=== PATIENT | male | born 1995 | race Two or more races ===

== ENCOUNTER 2019-06-05 09:06 | Emergency (ER) | payer SELFPAY ==
[2019-06-05] MEDS ORDERED: Ondansetron 4 MG/2 ML SDV IVPUSH ONE (09:47)
[2019-06-05] MEDS ORDERED: HYDROmorphone 0.5 MG/0.5 ML Syringe IVPUSH ONE ×2 (09:47→12:02)
--- NOTE | 2019-06-05 09:51 | EDM.PDOC ---
ED HPI GENERAL MEDICAL PROBLEM - General Chief Complaint: Abdominal Pain Stated Complaint: ABDOMINAL PAIN Time Seen by Provider: 06/05/19 09:43 Source of Information: Reports: Patient History Limitations: Reports: No Limitations - History of Present Illness INITIAL COMMENTS - FREE TEXT/NARRATIVE: Patient is a 23-year-old male who presents with complaints of upper abdominal pain, nausea, and vomiting that started this morning. Patient states when he went to bed last night he had no symptoms. He did eat tacos prior to going to bed last night. Patient denies any history of GERD. He has had an appendectomy , however he does still have his gallbladder. Patient states that the pain occurred first and then the nausea and vomiting. He states that he had a bowel movement yesterday. States it was a normal, formed BM. Abdominal Pain Score (Numeric/FACES): 8 - Related Data Allergies Allergy/AdvReac Type Severity Reaction Status Date / Time No Known Allergies Allergy Verified 06/05/19 09:26 Home Meds: Home Meds Dicyclomine [Bentyl] 20 mg PO Q6H PRN #10 tablet 06/05/19 [Rx] Ondansetron [Zofran ODT] 4 mg PO Q6H PRN #10 tab.dis 06/05/19 [Rx] ED ROS GENERAL - Review of Systems Review Of Systems: See Below Constitutional: Reports: No Symptoms. Denies: Fever, Chills HEENT: Reports: No Symptoms Respiratory: Reports: No Symptoms Cardiovascular: Reports: No Symptoms. Denies: Chest Pain, Palpitations Endocrine: Reports: No Symptoms GI/Abdominal: Reports: Abdominal Pain, Nausea, Vomiting. Denies: Diarrhea : Reports: No Symptoms Musculoskeletal: Reports: No Symptoms Skin: Reports: No Symptoms Neurological: Reports: No Symptoms. Denies: Dizziness, Headache Psychiatric: Reports: No Symptoms Hematologic/Lymphatic: Reports: No Symptoms Immunologic: Reports: No Symptoms ED EXAM, GI/ABD - Physical Exam Exam: See Below Exam Limited By: No Limitations General Appearance: Alert, WD/WN, Mild Distress Head: Atraumatic, Normocephalic Respiratory/Chest: No Respiratory Distress, Lungs Clear, Normal Breath Sounds, No Accessory Muscle Use, Chest Non-Tender Cardiovascular: Normal Peripheral Pulses, Regular Rate, Rhythm, No Edema, No Murmur GI/Abdominal Exam: Normal Bowel Sounds, Soft, No Distention, Tender ( generalized throughout. Worse in the epigastrum and bilateral upper quadrents.) Neurological: Alert, Oriented, Normal Cognition Psychiatric: Normal Affect, Normal Mood Skin Exam: Warm, Dry, Intact, Normal Color, No Rash Course - Vital Signs Last Recorded V/S: Last Vital Signs Temp 96.9 F 06/05/19 09:22 Pulse 100 06/05/19 09:22 Resp 18 06/05/19 09:22 BP 157/100 H 06/05/19 09:22 Pulse Ox 100 06/05/19 09:22 - Orders/Labs/Meds Orders: Active Orders 24 hr Category Date Time Status UA W/MICROSCOPIC [URIN] Stat Lab 06/05/19 09:47 Ordered Labs: Laboratory Tests 06/05/19 06/05/19 06/05/19 Range/Units 09:33 09:33 09:33 WBC 11.97 H (4.23-9.07) K/mm3 RBC 5.72 (4.63-6.08) M/mm3 Hgb 16.0 (13.7-17.5) gm/dl Hct 45.7 (40.1-51.0) % MCV 79.9 (79.0-92.2) fl MCH 28.0 (25.7-32.2) pg MCHC 35.0 (32.2-35.5) g/dl RDW Std Deviation 37.9 (35.1-43.9) fL Plt Count 280 (163-337) K/mm3 MPV 9.1 L (9.4-12.3) fl Neut % (Auto) 69.4 H (34.0-67.9) % Lymph % (Auto) 21.5 L (21.8-53.1) % White % (Auto) 6.8 (5.3-12.2) % Eos % (Auto) 1.7 (0.8-7.0) Baso % (Auto) 0.3 (0.1-1.2) % Neut # (Auto) 8.33 H (1.78-5.38) K/mm3 Lymph # (Auto) 2.57 (1.32-3.57) K/mm3 White # (Auto) 0.81 (0.30-0.82) K/mm3 Eos # (Auto) 0.20 (0.04-0.54) K/mm3 Baso # (Auto) 0.03 (0.01-0.08) K/mm3 Sodium 136 (136-145) mEq/L Potassium 3.5 (3.5-5.1) mEq/L Chloride 103 (98-107) mEq/L Carbon Dioxide 24 (21-32) mEq/L Anion Gap 12.5 (5-15) BUN 10 (7-18) mg/dL Creatinine 1.1 (0.7-1.3) mg/dL Est Cr Clr Drug Dosing 115.62 mL/min Estimated GFR (MDRD) > 60 (>60) mL/min BUN/Creatinine Ratio 9.1 L (14-18) Glucose 130 H (74-106) mg/dL POC Glucose (70-105) mg/dL Calcium 8.9 (8.5-10.1) mg/dL Total Bilirubin 0.8 (0.2-1.0) mg/dL AST 23 (15-37) U/L ALT 55 (16-63) U/L Alkaline Phosphatase 80 (46-116) U/L C-Reactive Protein < 0.2 (<1.0) mg/dL Total Protein 7.7 (6.4-8.2) g/dl Albumin 4.4 (3.4-5.0) g/dl Globulin 3.3 gm/dL Albumin/Globulin Ratio 1.3 (1-2) Lipase 203 (73-393) U/L 06/05/19 Range/Units 09:35 WBC (4.23-9.07) K/mm3 RBC (4.63-6.08) M/mm3 Hgb (13.7-17.5) gm/dl Hct (40.1-51.0) % MCV (79.0-92.2) fl MCH (25.7-32.2) pg MCHC (32.2-35.5) g/dl RDW Std Deviation (35.1-43.9) fL Plt Count (163-337) K/mm3 MPV (9.4-12.3) fl Neut % (Auto) (34.0-67.9) % Lymph % (Auto) (21.8-53.1) % White % (Auto) (5.3-12.2) % Eos % (Auto) (0.8-7.0) Baso % (Auto) (0.1-1.2) % Neut # (Auto) (1.78-5.38) K/mm3 Lymph # (Auto) (1.32-3.57) K/mm3 White # (Auto) (0.30-0.82) K/mm3 Eos # (Auto) (0.04-0.54) K/mm3 Baso # (Auto) (0.01-0.08) K/mm3 Sodium (136-145) mEq/L Potassium (3.5-5.1) mEq/L Chloride (98-107) mEq/L Carbon Dioxide (21-32) mEq/L Anion Gap (5-15) BUN (7-18) mg/dL Creatinine (0.7-1.3) mg/dL Est Cr Clr Drug Dosing mL/min Estimated GFR (MDRD) (>60) mL/min BUN/Creatinine Ratio (14-18) Glucose (74-106) mg/dL POC Glucose 126 H (70-105) mg/dL Calcium (8.5-10.1) mg/dL Total Bilirubin (0.2-1.0) mg/dL AST (15-37) U/L ALT (16-63) U/L Alkaline Phosphatase (46-116) U/L C-Reactive Protein (<1.0) mg/dL Total Protein (6.4-8.2) g/dl Albumin (3.4-5.0) g/dl Globulin gm/dL Albumin/Globulin Ratio (1-2) Lipase (73-393) U/L Meds: Medications Discontinued Medications Generic Name Dose Route Start Last Admin Trade Name Freq PRN Reason Stop Dose Admin Diatrizoate Meglum/Diatrizoate Sod 120 ml 06/05/19 12:35 06/05/19 13:34 Gastrografin 37% PO 06/05/19 12:36 90 ml ONETIME ONE Administration Dicyclomine HCl 20 mg 06/05/19 10:23 06/05/19 10:45 Bentyl PO 06/05/19 10:24 20 mg ONETIME ONE Administration Hydromorphone HCl 0.5 mg 06/05/19 09:47 06/05/19 09:57 Dilaudid IVPUSH 06/05/19 09:48 0.5 mg ONETIME ONE Administration Hydromorphone HCl 0.5 mg 06/05/19 12:02 06/05/19 12:22 Dilaudid IVPUSH 06/05/19 12:03 0.5 mg ONETIME ONE Administration Sodium Chloride 1,000 mls @ 999 mls/hr 06/05/19 10:00 06/05/19 09:55 Normal Saline IV 999 mls/hr ASDIRECTED ADELINE Administration Iopamidol 100 ml 06/05/19 12:35 06/05/19 13:34 Isovue-300 (61%) IVPUSH 06/05/19 12:36 100 ml ONETIME ONE Administration Ondansetron HCl 4 mg 06/05/19 09:47 06/05/19 09:55 Zofran IVPUSH 06/05/19 09:48 4 mg ONETIME ONE Administration Sodium Chloride 10 ml 06/05/19 12:35 06/05/19 13:34 Saline Flush FLUSH 10 ml ONETIME PRN Administration IV FLUSH - Re-Assessments/Exams Free Text/Narrative Re-Assessment/Exam: Patient is a 23-year-old male who presents with complaints of upper abdominal pain and vomiting that started upon waking this morning. He states when he went to bed last night he was feeling fine. He did eat some tacos that a friend brought over prior to going to bed. Patient does not have an appendix. He states that it was taken out a couple years ago. He does still have a gallbladder. He has had no other significant abdominal surgeries. I'll start with a CBC, CMP, lipase, and urinalysis. I have also ordered an abdomen flat and upright. I have ordered a 1 L bolus of normal saline, Dilaudid 0.5 mg, Zofran 4 mg. 06/05/19 1050 Patient's lab work was grossly unremarkable, with the exception of a mildly elevated white count at 11.97. His lipase and alkaline phosphatase are normal which decreases the likelihood of this being biliary obstruction. Abdomen x- ray shows no signs of bowel obstruction. I feel it is likely that the patient is suffering from viral gastroenteritis or possibly a foodborne illness related to the tacos he ate last night; however, pt has not developed diarrhea thus far. He states that he is feeling somewhat better after the medication administration. He is requesting water to drink. I have ordered Bentyl 20 mg by mouth to be given now. 06/05/19 11:25 Patient states that he does still have some abdominal pain, however is much better than it was when he came in. He was able to drink water and keep it down without vomiting. Discussed that we will send him home with Bentyl and Zofran to be used as needed. Patient states that he is comfortable going home with these medications. I did discuss with him that anything should get worse he should return to the ER. Medications will be sent to [facility] in [facility]. Discharge instructions as noted. 06/05/19 Pt's friend was here to give the pt a ride and requested to speak with this provider. Pt gave verbal consent to discuss his care with her while in the room with him. After much discussion, she and the patient requested that a CT scan be completed. I will complete a CT abdomen/pelvis with contrast. 06/05/19 14:25 CT results showed nothing acute. Impression was as follows; 1. Small abnormalities within each kidney believed to represent minimal cysts. 2. Fatty infiltration within the liver. 3. Nothing acute is appreciated on CT study of the abdomen and pelvis. Pt's mother was now present in the room with him. Discussed these results with the patient and his family. I did advise to use the Bentyl and Zofran as ordered and if symptoms should worsen or fail to improve over the next few days return to the ER or follow up in the clinic. They are in agreement with this plan of care. Departure - Departure Time of Disposition: 14:30 Disposition: Home, Self-Care 01 Condition: Fair Clinical Impression: Abdominal pain Qualifiers: Abdominal location: epigastric Qualified Code(s): R10.13 - Epigastric pain - Discharge Information *PRESCRIPTION DRUG MONITORING PROGRAM REVIEWED*: No *COPY OF PRESCRIPTION DRUG MONITORING REPORT IN PATIENT TYREE: No Prescriptions: Dicyclomine [Bentyl] 20 mg PO Q6H PRN #10 tablet PRN Reason: abdominal cramping Ondansetron [Zofran ODT] 4 mg PO Q6H PRN #10 tab.dis PRN Reason: Nausea/Vomiting Instructions: Abdominal Pain, Adult, [id number] Referrals: PCP,None [Primary Care Provider] - Forms: ED Department Discharge Additional Instructions: You were seen in the emergency department today for complaints of upper abdominal pain and vomiting. Your lab work, abdominal x-ray, and CT scan of the abdomen and pelvis were normal. It is likely that you are suffered from viral gastroenteritis which usually improves over the course of 24-72 hours. Prescriptions for Bentyl as needed for abdominal cramping and Zofran as needed for nausea have been sent to an [facility] in [facility]. Use these medications as prescribed. We recommend a clear liquid diet for the next 24 hours and then advance as tolerated. Avoid dairy products and fruit juices until symptoms have resolved. You did receive medications in the ER today that are sedating. Do no drive or operate machinery for at least 12 hours. If you should experience any new or worsening symptoms, please do not hesitate to return to the emergency department. Sepsis Event Note - Evaluation Sepsis Screening Result: No Definite Risk - Focused Exam Vital Signs: Vital Signs Temp Pulse Resp BP Pulse Ox 06/05/19 09:22 96.9 F 100 18 157/100 H 100 Date Exam was Performed: 06/05/19 Time Exam was Performed: 18:04 - My Orders Last 24 Hours: My Active Orders 06/05/19 09:47 UA W/MICROSCOPIC [URIN] Stat - Assessment/Plan Last 24 Hours: My Active Orders 06/05/19 09:47 UA W/MICROSCOPIC [URIN] Stat
[2019-06-05] MEDS ORDERED: Sodium Chloride 0.9% 1,000 ML IV SCH (10:00)
[2019-06-05] MEDS ORDERED: Dicyclomine 10 MG Cap PO ONE (10:23)
[2019-06-05] MEDS ORDERED: Sodium Chloride 0.9% 10 ML Syringe FLUSH PRN (12:35)
[2019-06-05] MEDS ORDERED: Diatrizoate Meglumine/Diatrizoate Sodium 37% 120 ML Bottle PO ONE (12:35)
[2019-06-05] MEDS ORDERED: Iopamidol 612 MG/ML 100 ML Bottle IVPUSH ONE (12:35)
--- NOTE | 2019-06-05 14:08 | CT ---
CT abdomen and pelvis Technique: Multiple axial sections were obtained from above the dome of the diaphragm inferiorly through the pubic symphysis. Intravenous contrast was utilized. Small amount of oral contrast is seen. Delayed images were obtained through the bladder. Comparison: Prior abdominal x-ray performed earlier on the same day. Findings: Visualized lung bases show nothing acute. Liver contains no focal abnormality. Diminished density is seen within the liver believed to represent fatty infiltration. Gallbladder contains no calcified gallstones. Spleen appears within normal limits. Adrenal glands show no nodule. Kidneys show symmetric contrast enhancement. Small low density abnormality is noted within each kidney measuring less than 1 cm. Findings are too small to accurately measure by Hounsfield unit measurements but most likely represent minimal cysts given the patient's age. Pancreas appears within normal limits. Aorta shows no aneurysm. No retroperitoneal adenopathy or mesenteric abnormalities are seen. No pelvic mass or adenopathy is seen. No free fluid or inflammatory change is seen. Delayed images show contrast within the distal ureters and within the bladder. Appendix not visualized with certainty. Bone window settings were reviewed which appear within normal limits for the patient's age. Impression: 1. Small abnormality within each kidney believed to represent minimal cysts. 2. Fatty infiltration within the liver. 3. Nothing acute is appreciated on CT study of the abdomen and pelvis. Diagnostic code #2 This report was dictated in [place] Standard Time
--- NOTE | 2019-06-05 15:11 | CR ---
Abdomen: Supine and upright views of the abdomen were obtained. Comparison: No prior abdominal imaging. Bowel gas pattern is normal. No free air is seen. No soft tissue abnormality is seen. No abnormal calcifications are seen. Impression: 1. No abnormality is seen on two-view abdominal study. Diagnostic code #1 This report was dictated in [place] [employer] Time
== END 2019-06-05 14:48 | disposition home or self-care (01) ==
LOC: JD.ED 09:06
DX: R10.13 Epigastric pain (principal); R11.2 Nausea with vomiting, unspecified
CPT/HCPCS: 36415; 74019; 74177; 80053; 82962; 83690; 85025; 86140; 96361; 96374; 96375; 96376; 99284; A9270; J1170; J2405; J7030; Q9963; Q9967

== ENCOUNTER 2020-07-17 18:40 | Observation (INO) | payer SELFPAY ==
[2020-07-17] MEDS ORDERED: Sodium Chloride 0.9% 1,000 ML IV ONE (18:57)
[2020-07-17] MEDS ORDERED: Ondansetron 4 MG/2 ML SDV IVPUSH ONE (19:05)
[2020-07-17] MEDS ORDERED: HYDROmorphone 1 MG/ML Syringe IVPUSH STA (19:05)
--- NOTE | 2020-07-17 19:12 | EDM.PDOC ---
ED HPI GENERAL MEDICAL PROBLEM - General Chief Complaint: Abdominal Pain Stated Complaint: [facility] Time Seen by Provider: 07/17/20 18:53 Source of Information: Reports: Patient History Limitations: Reports: Physical Impairment (Patient reluctant to answer questions) - History of Present Illness INITIAL COMMENTS - FREE TEXT/NARRATIVE: Mr. Garcia is a pleasant 24-year-old man with no chronic medical problems, on no medications, who is now brought to the ED by EMS with a complaint of lower abdominal pain that began 2 or 3 days ago, on or about , 07/14/2020 or 07/15/2020. He describes the character of the pain as "just pain", and states that it has progressively been getting worse. He has not identified any modifiers. He also reports that his last bowel movement was on , 07/14/2020. He has had chills, but no documented fever. No nausea or vomiting. No recent diarrhea. No urinary symptoms. No prior similar symptoms. The patient states that he has been taking Tylenol to treat his symptoms, but is vague about both the dose and the frequency - he has been taking it only once a day. The patient was given 50 mcg of fentanyl per EMS en route to the ED. The patient states that he last ate around 18:00 tonight. He states that he is thirsty and requested something to drink (he was told no). Here in the ED, the patient is found to be tachycardic at 133 bpm with tachypnea of 30 rpm. He is afebrile, saturating 96% on room air. Prior to , the patient denies having a recent fever, chills, sore throat, ear pain, nasal or sinus congestion, cough, dyspnea, chest pain, palpitations, nausea, vomiting, constipation, diarrhea, abdominal pain, urinary symptoms, recent weight gain or weight loss, recent bloody bowel movements or black bowel movements, recent joint aches, headaches, or rashes. The patient does not have a PCP. He did not receive an influenza vaccine this season. Lower Abdomen Pain Score (Numeric/FACES): 7 - Related Data Allergies Allergy/AdvReac Type Severity Reaction Status Date / Time Pork/Porcine Containing Allergy Stomach Verified 07/17/20 18:50 Products Upset Home Meds: Home Meds . [No Known Home Meds] 07/17/20 [History] Past Medical History - Past Surgical History GI Surgical History: Reports: Appendectomy Social & Family History - Tobacco Use Tobacco Use Status *Q: Current Every Day Tobacco User Years of Tobacco use: 5 Packs/Tins Daily: 0.3 - Caffeine Use Caffeine Use: Reports: Soda - Alcohol Use Alcohol Use History: Yes Alcohol Use Frequency: Socially - Recreational Drug Use Recreational Drug Use: Yes Drug Use in Last 12 Months: No Recreational Drug Type: Reports: Marijuana/Hashish (last smoked 2013), Methamphetamine (last smoked 2018) - Living Situation & Occupation Living situation: Reports: Single, Other (with a friend) Occupation: Unemployed ED ROS GENERAL - Review of Systems Review Of Systems: Comprehensive ROS is negative, except as noted in HPI. ED EXAM, GI/ABD - Physical Exam Exam: See Below Exam Limited By: No Limitations General Appearance: Alert, WD/WN, Mild Distress (appears uncomfortable) Eyes: Bilateral: Normal Appearance, EOMI Ears: Normal External Exam, Hearing Grossly Normal Nose: Normal Inspection Throat/Mouth: Normal Inspection, Normal Lips, Normal Voice, No Airway Compromise Head: Atraumatic, Normocephalic Neck: Normal Inspection, Full Range of Motion Respiratory/Chest: No Respiratory Distress, Lungs Clear, Normal Breath Sounds, No Accessory Muscle Use Cardiovascular: Normal Peripheral Pulses, No Edema, No Gallop, No JVD, No Murmur, No Rub, Tachycardia (regular) GI/Abdominal Exam: Soft, No Organomegaly, No Distention, No Abnormal Bruit, No Mass, Tender (Right lower quadrant, with mild extension to the right upper quadrant. Nontender elsewhere. Rovsing sign absent.), Abnormal Bowel Sounds (diminished) Back Exam: Normal Inspection, Full Range of Motion. No: CVA Tenderness (L), CVA Tenderness (R) Extremities: Normal Inspection, Normal Range of Motion, No Pedal Edema, Normal Capillary Refill Neurological: Alert, Oriented, Normal Cognition, No Motor/Sensory Deficits Psychiatric: Normal Affect Skin Exam: Warm, Intact, Normal Color, No Rash, Diaphoretic (mild) Course - Vital Signs Last Recorded V/S: Last Vital Signs Temp 37.5 C 07/17/20 18:54 Pulse 133 H 07/17/20 18:44 Resp 30 H 07/17/20 18:44 BP 136/99 H 07/17/20 18:44 Pulse Ox 96 07/17/20 18:44 - Orders/Labs/Meds Orders: Active Orders 24 hr Category Date Time Status Patient Status [ADT] Routine ADT 07/17/20 21:57 Active Activity as Tolerated [RC] .Routine Care 07/17/20 21:57 Active Antiembolic Devices [RC] PER UNIT ROUTINE Care 07/17/20 21:58 Active Oxygen Therapy [RC] PRN Care 07/17/20 21:57 Active RT Incentive Spirometry [RC] Q1HWA Care 07/17/20 21:57 Active Vital Signs [RC] Q8H Care 07/17/20 21:57 Active Nothing Per Oral Diet [DIET] Diet 07/17/20 Breakfast Active Abdomen Pelvis w Cont [CT] Stat Exams 07/17/20 19:05 Taken BASIC METABOLIC PANEL,BMP [CHEM] AM Lab 07/18/20 05:11 Ordered CBC WITH AUTO DIFF [HEME] AM Lab 07/18/20 05:11 Ordered UA W/MICROSCOPIC [URIN] Stat Lab 07/17/20 19:05 Ordered Lactated Ringers [Ringers, Lactated] 1,000 ml Med 07/17/20 22:00 Active IV ASDIRECTED Morphine Med 07/17/20 21:57 Active 1 mg IVPUSH Q3H PRN Piperacillin/Tazobactam [Piperacil-Tazobact] 4.5 gm Med 07/17/20 22:15 Active Sodium Chloride 0.9% [Normal Saline] 100 ml IV ONETIME Piperacillin/Tazobactam [Piperacil-Tazobact] 4.5 gm Med 07/18/20 06:00 Active Sodium Chloride 0.9% [Normal Saline] 100 ml IV Q8H Sodium Chloride 0.9% [Normal Saline] 1,000 ml Med 07/17/20 20:30 Active IV ASDIRECTED Sodium Chloride 0.9% [Normal Saline] 100 ml Med 07/17/20 20:00 Active IV ASDIRECTED Sodium Chloride 0.9% [Saline Flush] Med 07/17/20 20:00 Active 10 ml FLUSH BOLUS Schedule Procedure [COMM] Routine Oth 07/18/20 08:00 Ordered Sequential Compression Device [OM.PC] Routine Oth 07/17/20 21:57 Ordered Resuscitation Status Routine Resus Stat 07/17/20 21:57 Ordered Medication Orders Sodium Chloride (Normal Saline) 100 mls @ 60 drops/min IV ASDIRECTED [facility] Last Admin: 07/17/20 21:07 Dose: 60 drops/min Documented by: KATIANA Sodium Chloride (Normal Saline) 1,000 mls @ 150 mls/hr IV ASDIRECTED [facility] Last Admin: 07/17/20 21:04 Dose: 150 mls/hr Documented by: SURINDER Lactated Ringer's (Ringers, Lactated) 1,000 mls @ 150 mls/hr IV ASDIRECTED ADELINE Piperacillin Sod/Tazobactam (Sod 4.5 gm/ Sodium Chloride) 100 mls @ 25 mls/hr IV Q8H ADELINE Piperacillin Sod/Tazobactam (Sod 4.5 gm/ Sodium Chloride) 100 mls @ 200 mls/hr IV ONETIME ONE Stop: 07/17/20 22:44 Morphine Sulfate (Morphine) 1 mg IVPUSH Q3H PRN PRN Reason: Pain (severe 7-10) Sodium Chloride (Saline Flush) 10 ml FLUSH BOLUS [facility] Last Admin: 07/17/20 21:06 Dose: 10 ml Documented by: KATIANA Labs: Laboratory Tests 07/17/20 07/17/20 07/17/20 Range/Units 18:48 18:48 18:54 WBC 21.27 H (4.23-9.07) K/mm3 RBC 6.25 H (4.63-6.08) M/mm3 Hgb 17.4 (13.7-17.5) gm/dl Hct 50.5 (40.1-51.0) % MCV 80.8 (79.0-92.2) fl MCH 27.8 (25.7-32.2) pg MCHC 34.5 (32.2-35.5) g/dl RDW Std Deviation 39.3 (35.1-43.9) fL Plt Count 429 H D (163-337) K/mm3 MPV 9.5 (9.4-12.3) fl Neutrophils % (Manual) 67 H (40-60) % Band Neutrophils % 0 (0-10) % Lymphocytes % (Manual) 22 (20-40) % Atypical Lymphs % 0 % Monocytes % (Manual) 9 (2-10) % Eosinophils % (Manual) 2 (0.8-7.0) % Basophils % (Manual) 0 L (0.2-1.2) Platelet Estimate Increased RBC Morph Comment Normal Sodium 137 (136-145) mEq/L Potassium 3.8 (3.5-5.1) mEq/L Chloride 100 (98-107) mEq/L Carbon Dioxide 23 (21-32) mEq/L Anion Gap 17.8 H (5-15) BUN 8 (7-18) mg/dL Creatinine 1.4 H (0.7-1.3) mg/dL Est Cr Clr Drug Dosing 87.40 mL/min Estimated GFR (MDRD) > 60 (>60) mL/min BUN/Creatinine Ratio 5.7 L (14-18) Glucose 148 H (74-106) mg/dL Lactic Acid 1.8 (0.4-2.0) mmol/L Calcium 9.2 (8.5-10.1) mg/dL Total Bilirubin 1.2 H (0.2-1.0) mg/dL AST 15 (15-37) U/L ALT 29 (16-63) U/L Alkaline Phosphatase 77 (46-116) U/L Total Protein 8.1 (6.4-8.2) g/dl Albumin 3.9 (3.4-5.0) g/dl Globulin 4.2 gm/dL Albumin/Globulin Ratio 0.9 L (1-2) SARS-CoV-2 RNA (SARAH) (NEGATIVE) 07/17/20 Range/Units 19:30 WBC (4.23-9.07) K/mm3 RBC (4.63-6.08) M/mm3 Hgb (13.7-17.5) gm/dl Hct (40.1-51.0) % MCV (79.0-92.2) fl MCH (25.7-32.2) pg MCHC (32.2-35.5) g/dl RDW Std Deviation (35.1-43.9) fL Plt Count (163-337) K/mm3 MPV (9.4-12.3) fl Neutrophils % (Manual) (40-60) % Band Neutrophils % (0-10) % Lymphocytes % (Manual) (20-40) % Atypical Lymphs % % Monocytes % (Manual) (2-10) % Eosinophils % (Manual) (0.8-7.0) % Basophils % (Manual) (0.2-1.2) Platelet Estimate RBC Morph Comment Sodium (136-145) mEq/L Potassium (3.5-5.1) mEq/L Chloride (98-107) mEq/L Carbon Dioxide (21-32) mEq/L Anion Gap (5-15) BUN (7-18) mg/dL Creatinine (0.7-1.3) mg/dL Est Cr Clr Drug Dosing mL/min Estimated GFR (MDRD) (>60) mL/min BUN/Creatinine Ratio (14-18) Glucose (74-106) mg/dL Lactic Acid (0.4-2.0) mmol/L Calcium (8.5-10.1) mg/dL Total Bilirubin (0.2-1.0) mg/dL AST (15-37) U/L ALT (16-63) U/L Alkaline Phosphatase (46-116) U/L Total Protein (6.4-8.2) g/dl Albumin (3.4-5.0) g/dl Globulin gm/dL Albumin/Globulin Ratio (1-2) SARS-CoV-2 RNA (SARAH) Negative (NEGATIVE) Meds: Medications Generic Name Dose Route Start Last Admin Trade Name Freq PRN Reason Stop Dose Admin Sodium Chloride 100 mls @ 60 drops/min 07/17/20 20:00 07/17/20 21:07 Normal Saline IV 60 drops/min ASDIRECTED ADELINE Administration Sodium Chloride 1,000 mls @ 150 mls/hr 07/17/20 20:30 07/17/20 21:04 Normal Saline IV 150 mls/hr ASDIRECTED ADELINE Administration Lactated Ringer's 1,000 mls @ 150 mls/hr 07/17/20 22:00 Ringers, Lactated IV ASDIRECTED ADELINE Piperacillin Sod/Tazobactam 100 mls @ 25 mls/hr 07/18/20 06:00 Sod 4.5 gm/ Sodium Chloride IV Q8H ADELINE Piperacillin Sod/Tazobactam 100 mls @ 200 mls/hr 07/17/20 22:15 Sod 4.5 gm/ Sodium Chloride IV 07/17/20 22:44 ONETIME ONE Morphine Sulfate 1 mg 07/17/20 21:57 Morphine IVPUSH Q3H PRN Pain (severe 7-10) Sodium Chloride 10 ml 07/17/20 20:00 07/17/20 21:06 Saline Flush FLUSH 10 ml BOLUS ADELINE Administration Discontinued Medications Generic Name Dose Route Start Last Admin Trade Name Wayne PRN Reason Stop Dose Admin Hydromorphone HCl 1 mg 07/17/20 19:05 07/17/20 19:13 Dilaudid IVPUSH 07/17/20 19:06 1 mg ONETIME STA Administration Sodium Chloride 1,000 mls @ 999 mls/hr 07/17/20 18:57 07/17/20 18:58 Normal Saline IV 07/17/20 19:57 999 mls/hr ONETIME ONE Administration Iopamidol 100 ml 07/17/20 19:56 07/17/20 21:06 Isovue-300 (61%) IVPUSH 07/17/20 19:57 100 ml ONETIME ONE Administration Ondansetron HCl 4 mg 07/17/20 19:05 07/17/20 19:12 Zofran IVPUSH 07/17/20 19:06 4 mg ONETIME ONE Administration - Re-Assessments/Exams Free Text/Narrative Re-Assessment/Exam: 07/17/20 19:06 As above, the patient has not had a bowel movement since approximately , and reports lower abdominal pain for the past 2 or 3 days, progressively worsening. He is tachycardic, tachypneic, and appears to be quite uncomfortable. On physical examination, he has diminished bowel sounds, and is quite tender in the right lower quadrant, but with only minimal tenderness in the right upper quadrant and no tenderness elsewhere. No CVA tenderness. Since he already underwent an appendectomy, the cause of his abdominal pain is not immediately clear. A CBC, CMP, lactic acid level, and IV fluid bolus were ordered at triage. I have added a urinalysis, a CT of the abdomen and pelvis with oral and IV contrast, along with some IV Dilaudid and IV Zofran. 07/17/20 19:26 Since the patient may need to be admitted, I have added a swab for the SARS-CoV-2 virus. 07/17/20 20:22 Notified by Kiera BROWN that the 1 L of IV fluid bolus has finished infusing, and that the patient is feeling considerably better already. I have ordered a renewal of IV fluid at 150 mL/h. 07/17/20 20:45 The patient's CBC is remarkable for WBC count elevated at 21.27, but with 0% bandemia. He has modest thrombocytosis of 429,000, with the remainder of his CBC being unremarkable. His CMP is remarkable for an anion gap slightly elevated at 17.8, but with a bicarbonate normal at 23. His Cr is slightly elevated at 1.4 with a BUN normal at 8. He has mild hyperglycemia of 148, and his TBil is slightly elevated at 1.2, with the remainder of his CMP being unremarkable. His lactic acid level is within normal limits at 1.8. His swab for the SARS-CoV-2 virus has returned negative. The patient has not yet submitted a urine sample, nor gone to CT scan. 07/17/20 21:24 CT of the abdomen and pelvis with oral and IV contrast is read by vRnate as "Moderate to severe acute cholecystitis." 07/17/20 21:[address] Spring at 21:25. He stated that he is already in the hospital, therefore will come by the ED to evaluate the patient. 07/17/20 21:33 Test results discussed with the patient. I found him to be sleeping, and he acknowledged that he is feeling much better. 07/17/20 22:[address] Spring will be admitting the patient. He submitted orders. Departure - Departure Time of Disposition: 22:22 Disposition: Admitted As Inpatient 67 Condition: Fair Clinical Impression: Acute cholecystitis, Hyperglycemia - Discharge Information *PRESCRIPTION DRUG MONITORING PROGRAM REVIEWED*: Not Applicable *COPY OF PRESCRIPTION DRUG MONITORING REPORT IN PATIENT TYREE: Not Applicable Referrals: PCP,None [Primary Care Provider] - Forms: ED Department Discharge Sepsis Event Note (ED) - Evaluation Sepsis Screening Result: Possible Sepsis Risk - Focused Exam Vital Signs: Vital Signs Temp Temp Pulse Resp BP Pulse Ox 07/17/20 18:54 37.5 C 07/17/20 18:44 35.4 C L 133 H 30 H 136/99 H 96 - My Orders Last 24 Hours: My Active Orders 07/17/20 19:05 Abdomen Pelvis w Cont [CT] Stat UA W/MICROSCOPIC [URIN] Stat 07/17/20 20:00 Sodium Chloride 0.9% [Normal Saline] 100 ml IV ASDIRECTED Sodium Chloride 0.9% [Saline Flush] 10 ml FLUSH BOLUS 07/17/20 20:30 Sodium Chloride 0.9% [Normal Saline] 1,000 ml IV ASDIRECTED - Assessment/Plan Last 24 Hours: My Active Orders 07/17/20 19:05 Abdomen Pelvis w Cont [CT] Stat UA W/MICROSCOPIC [URIN] Stat 07/17/20 20:00 Sodium Chloride 0.9% [Normal Saline] 100 ml IV ASDIRECTED Sodium Chloride 0.9% [Saline Flush] 10 ml FLUSH BOLUS 07/17/20 20:30 Sodium Chloride 0.9% [Normal Saline] 1,000 ml IV ASDIRECTED
[2020-07-17] MEDS ORDERED: Iopamidol 612 MG/ML 100 ML Bottle IVPUSH ONE (19:56)
[2020-07-17] MEDS ORDERED: Sodium Chloride 0.9% 100 ML IV SCH (20:00)
[2020-07-17] MEDS ORDERED: Sodium Chloride 0.9% 10 ML Syringe FLUSH SCH (20:00)
[2020-07-17] MEDS ORDERED: Sodium Chloride 0.9% 1,000 ML IV SCH (20:30)
[2020-07-17] MEDS ORDERED: Piperacillin/Tazobactam 4.5 GM in Sodium Chloride 0.9% 100 ML IV ONE (22:15)
[2020-07-18] MEDS: Lactated Ringers 1,000 ML IV SCH ×2 (00:04→06:58)
[2020-07-18] MEDS: Morphine 2 MG/ML SYRINGE IVPUSH PRN ×2 (02:00→05:02)
[2020-07-18] MEDS ORDERED: Piperacillin/Tazobactam 4.5 GM in Sodium Chloride 0.9% 100 ML IV SCH (06:00)
[2020-07-18] MEDS ORDERED: Bupivacaine 0.5%/EPINEPHrine 1:200,000 50 ML MDV ONE (07:54)
[2020-07-18] MEDS ORDERED: Rocuronium 50 MG/5 ML Vial ONE (08:00)
[2020-07-18] MEDS ORDERED: Midazolam 1 MG/ML 2 ML SDV ONE (08:00)
[2020-07-18] MEDS ORDERED: fentaNYL 250 MCG/5 ML SDV ONE (08:00)
[2020-07-18] MEDS ORDERED: Lactated Ringers 1,000 ML ONE ×3 (08:00→08:55)
[2020-07-18] MEDS ORDERED: Ondansetron 4 MG/2 ML SDV ONE (08:00)
[2020-07-18] MEDS ORDERED: Lidocaine 1% 4 ML ONE (08:00)
[2020-07-18] MEDS ORDERED: Propofol 200 MG/20 ML SDV ONE (08:01)
--- NOTE | 2020-07-18 08:17 | PCM.PREANE ---
Preanesthetic Assessment - Procedure Proposed Procedure: Laparoscopic Cholecystectomy - Anesthesia/Transfusion/Family Hx Anesthesia History: Prior Anesthesia Without Reaction Family History of Anesthesia Reaction: No Transfusion History: No Prior Transfusion(s) - Review of Systems General: Fatigue, Malaise Pulmonary: No Symptoms (Smoker 5-6 per day with last use 4 days ago. ) Cardiovascular: No Symptoms Gastrointestinal: Abdominal Pain, Decreased Appetite Neurological: No Symptoms Other: Reports: None (History of drug abuse no use for the past 2 years. ) - Physical Assessment NPO Status Date: 07/17/20 NPO Status Time: 11:00 (Soda) Vital Signs: Last Vital Signs Temp 37.3 C 07/18/20 08:02 Pulse 105 H 07/18/20 00:05 Resp 18 07/18/20 08:02 BP 126/80 07/18/20 08:02 Pulse Ox 100 07/18/20 08:02 Height: 1.8 m Weight: 104.78 kg ASA Class: 2 Mental Status: Alert & Oriented x3 Airway Class: Mallampati = 2 Dentition: Reports: Normal Dentition Thyro-Mental Finger Breadths: 3 Mouth Opening Finger Breadths: 3 ROM/Head Extension: Full Lungs: Clear to Auscultation, Normal Respiratory Effort Cardiovascular: Regular Rate, Regular Rhythm - Lab Values: Laboratory Last Values WBC 21.27 K/mm3 (4.23-9.07) H 07/17/20 18:48 RBC 6.25 M/mm3 (4.63-6.08) H 07/17/20 18:48 Hgb 17.4 gm/dl (13.7-17.5) 07/17/20 18:48 Hct 50.5 % (40.1-51.0) 07/17/20 18:48 MCV 80.8 fl (79.0-92.2) 07/17/20 18:48 MCH 27.8 pg (25.7-32.2) 07/17/20 18:48 MCHC 34.5 g/dl (32.2-35.5) 07/17/20 18:48 RDW Std Deviation 39.3 fL (35.1-43.9) 07/17/20 18:48 Plt Count 429 K/mm3 (163-337) H D 07/17/20 18:48 MPV 9.5 fl (9.4-12.3) 07/17/20 18:48 Neutrophils % (Manual) 67 % (40-60) H 07/17/20 18:48 Band Neutrophils % 0 % (0-10) 07/17/20 18:48 Lymphocytes % (Manual) 22 % (20-40) 07/17/20 18:48 Atypical Lymphs % 0 % 07/17/20 18:48 Monocytes % (Manual) 9 % (2-10) 07/17/20 18:48 Eosinophils % (Manual) 2 % (0.8-7.0) 07/17/20 18:48 Basophils % (Manual) 0 (0.2-1.2) L 07/17/20 18:48 Platelet Estimate Increased 07/17/20 18:48 RBC Morph Comment Normal 07/17/20 18:48 Sodium 137 mEq/L (136-145) 07/17/20 18:48 Potassium 3.8 mEq/L (3.5-5.1) 07/17/20 18:48 Chloride 100 mEq/L (98-107) 07/17/20 18:48 Carbon Dioxide 23 mEq/L (21-32) 07/17/20 18:48 Anion Gap 17.8 (5-15) H 07/17/20 18:48 BUN 8 mg/dL (7-18) 07/17/20 18:48 Creatinine 1.4 mg/dL (0.7-1.3) H 07/17/20 18:48 Est Cr Clr Drug Dosing 87.40 mL/min 07/17/20 18:48 Estimated GFR (MDRD) > 60 mL/min (>60) 07/17/20 18:48 BUN/Creatinine Ratio 5.7 (14-18) L 07/17/20 18:48 Glucose 148 mg/dL (74-106) H 07/17/20 18:48 Lactic Acid 1.8 mmol/L (0.4-2.0) 07/17/20 18:54 Calcium 9.2 mg/dL (8.5-10.1) 07/17/20 18:48 Total Bilirubin 1.2 mg/dL (0.2-1.0) H 07/17/20 18:48 AST 15 U/L (15-37) 07/17/20 18:48 ALT 29 U/L (16-63) 07/17/20 18:48 Alkaline Phosphatase 77 U/L (46-116) 07/17/20 18:48 Total Protein 8.1 g/dl (6.4-8.2) 07/17/20 18:48 Albumin 3.9 g/dl (3.4-5.0) 07/17/20 18:48 Globulin 4.2 gm/dL 07/17/20 18:48 Albumin/Globulin Ratio 0.9 (1-2) L 07/17/20 18:48 Urine Color Anila (Yellow) H 07/17/20 19:05 Urine Appearance Clear (Clear) 07/17/20 19:05 Urine pH 6.0 (5.0-8.0) 07/17/20 19:05 Ur Specific [place]one > or = 1.030 (1.005-1.030) 07/17/20 19:05 Urine Protein 1+ (Negative) H 07/17/20 19:05 Urine Glucose (UA) Negative (Negative) 07/17/20 19:05 Urine Ketones Negative (Negative) 07/17/20 19:05 Urine Occult Blood Negative (Negative) 07/17/20 19:05 Urine Nitrite Negative (Negative) 07/17/20 19:05 Urine Bilirubin Negative (Negative) 07/17/20 19:05 Urine Urobilinogen 1.0 (0.2-1.0) 07/17/20 19:05 Ur Leukocyte Esterase Negative (Negative) 07/17/20 19:05 U Hyaline Cast (Auto) 0-5 /lpf (0-5) 07/17/20 19:05 Urine RBC Not seen /hpf (0-5) 07/17/20 19:05 Urine WBC 0-5 /hpf (0-5) 07/17/20 19:05 Ur Squamous Epith Cells 0-5 /hpf (0-5) 07/17/20 19:05 Urine Bacteria Few /hpf (FEW) 07/17/20 19:05 Fine Granular Casts 0-5 /lpf (0-5) 07/17/20 19:05 Urine Mucus Few /hpf (FEW) 07/17/20 19:05 SARS-CoV-2 RNA (SARAH) Negative (NEGATIVE) 07/17/20 19:30 - Allergies Allergies/Adverse Reactions: Allergies Allergy/AdvReac Type Severity Reaction Status Date / Time Pork/Porcine Containing Allergy Stomach Verified 07/18/20 02:26 Products Upset - Acknowledgements Anesthesia Type Planned: General Anesthesia Pt an Appropriate Candidate for the Planned Anesthesia: Yes Alternatives and Risks of Anesthesia Discussed w Pt/Guardian: Yes Pt/Guardian Understands and Agrees with Anesthesia Plan: Yes PreAnesthesia Questionnaire - Past Surgical History GI Surgical History: Reports: Appendectomy - SUBSTANCE USE Tobacco Use Status *Q: Current Every Day Tobacco User Tobacco Use Within Last Twelve Months: Cigarettes Second Hand Smoke Exposure: No Days Per Week of Alcohol Use: 1 Number of Drinks Per Day: 2 Total Drinks Per Week: 2 Recreational Drug Use History: Yes Recreational Drug Type: Reports: Methamphetamine - HOME MEDS Home Medications: Home Meds . [No Known Home Meds] 07/17/20 [History] - CURRENT (IN HOUSE) MEDS Current Meds: Current Medications Sodium Chloride (Normal Saline) 100 mls @ 60 drops/min IV ASDIRECTED [facility] Last Admin: 07/17/20 21:07 Dose: 60 drops/min Documented by: Sodium Chloride (Normal Saline) 1,000 mls @ 150 mls/hr IV ASDIRECTED [facility] Last Admin: 07/17/20 21:04 Dose: 150 mls/hr Documented by: Lactated Ringer's (Ringers, Lactated) 1,000 mls @ 150 mls/hr IV ASDIRECTED [facility] Last Admin: 07/18/20 06:58 Dose: 150 mls/hr Documented by: Piperacillin Sod/Tazobactam (Sod 4.5 gm/ Sodium Chloride) 100 mls @ 25 mls/hr IV Q8H [facility] Last Admin: 07/18/20 05:55 Dose: 25 mls/hr Documented by: Morphine Sulfate (Morphine) 1 mg IVPUSH Q3H PRN PRN Reason: Pain (severe 7-10) Last Admin: 07/18/20 05:02 Dose: 1 mg Documented by: Discontinued Medications Bupivacaine HCl/Epinephrine Bitart (Marcaine 0.5%/Epinephrine 1:200,000) Confirm Administered Dose 50 ml .ROUTE .STK-MED ONE Stop: 07/18/20 07:55 Fentanyl (Sublimaze) Confirm Administered Dose 250 mcg .ROUTE .STK-MED ONE Stop: 07/18/20 08:01 Hydromorphone HCl (Dilaudid) 1 mg IVPUSH ONETIME STA Stop: 07/17/20 19:06 Last Admin: 07/17/20 19:13 Dose: 1 mg Documented by: Sodium Chloride (Normal Saline) 1,000 mls @ 999 mls/hr IV ONETIME ONE Stop: 07/17/20 19:57 Last Admin: 07/17/20 18:58 Dose: 999 mls/hr Documented by: Piperacillin Sod/Tazobactam (Sod 4.5 gm/ Sodium Chloride) 100 mls @ 200 mls/hr IV ONETIME ONE Stop: 07/17/20 22:44 Last Admin: 07/17/20 22:22 Dose: 200 mls/hr Documented by: Lidocaine HCl (Xylocaine-Mpf 1%) Confirm Administered Dose 4 mls @ as directed .ROUTE .STK-MED ONE Stop: 07/18/20 08:01 Lactated Ringer's (Ringers, Lactated) Confirm Administered Dose 1,000 mls @ as directed .ROUTE .[facility]-MED ONE Stop: 07/18/20 08:01 Iopamidol (Isovue-300 (61%)) 100 ml IVPUSH ONETIME ONE Stop: 07/17/20 19:57 Last Admin: 07/17/20 21:06 Dose: 100 ml Documented by: Midazolam HCl (Versed 1 Mg/Ml) Confirm Administered Dose 2 mg .ROUTE .STK-MED ONE Stop: 07/18/20 08:01 Ondansetron HCl (Zofran) 4 mg IVPUSH ONETIME ONE Stop: 07/17/20 19:06 Last Admin: 07/17/20 19:12 Dose: 4 mg Documented by: Ondansetron HCl (Zofran) Confirm Administered Dose 4 mg .ROUTE .STK-MED ONE Stop: 07/18/20 08:01 Propofol (Diprivan 20 Ml) Confirm Administered Dose 400 mg .ROUTE .STK-MED ONE Stop: 07/18/20 08:02 Rocuronium Central (Zemuron) Confirm Administered Dose 50 mg .ROUTE .STK-MED ONE Stop: 07/18/20 08:01 Sodium Chloride (Saline Flush) 10 ml FLUSH BOLUS ADELINE Last Admin: 07/17/20 21:06 Dose: 10 ml Documented by:
[2020-07-18] MEDS ORDERED: Sodium Chloride 0.9% 10 ML Syringe FLUSH PRN (08:33)
[2020-07-18] MEDS ORDERED: Lidocaine 1%/Sod Bicarbonate in NS 8.4% 1 ML Syringe IDERM PRN (08:33)
[2020-07-18] MEDS ORDERED: Dexamethasone 4 MG/ML 5 ML MDV ONE (08:37)
[2020-07-18] MEDS ORDERED: HYDROmorphone 0.5 MG/0.5 ML Syringe ONE ×2 (08:38→08:51)
--- NOTE | 2020-07-18 08:44 | CT ---
CT abdomen and pelvis Technique: Multiple axial sections were obtained from above the dome of the diaphragm inferiorly through the pubic symphysis. Intravenous and oral contrast was utilized. Delayed images were also obtained through the abdomen and pelvis. Reconstructed coronal and sagittal images were obtained. Comparison: Prior CT abdomen and pelvis study of 06/05/19. Findings: Visualized lung bases show nothing acute. Minimal amount of low density is noted within the liver next to the ligamentum teres fissure compatible with small amount of normal fat. Gallbladder shows minimal increased density within the gallbladder wall with diffuse surrounding low density most likely representing diffuse pericholecystic fluid. No definite shadowing gallstones are appreciated. Adrenal glands show no nodule. Kidneys show symmetric contrast enhancement. Several cysts are noted within the kidneys which have slightly increased in size from previous exam. Spleen appears normal. Liver shows mild fatty infiltration. No discrete abnormality is noted within the pancreas. Aorta shows no aneurysm. No retroperitoneal adenopathy is appreciated. Appendix is not definitely visualized. Prior surgery is noted next to tip of the cecum. Delayed images shows contrast throughout the ureters. Contrast is noted within the bladder. No free fluid or inflammatory is otherwise otherwise seen. Small fat-containing unilateral inguinal hernia is noted. Bone window settings were reviewed which appear within normal limits for the patient's age. Small fat-containing umbilical hernia is noted. Impression: 1. Slightly abnormal gallbladder as noted above suspicious for acute cholecystitis. Please correlate clinically. 2. Other findings as noted above which are most likely incidental. Diagnostic code #3 I agree with preliminary report from [facility], finalized on 07/17/20, 10:20 PM Central Standard Time
[2020-07-18] MEDS ORDERED: Lactated Ringers 1,000 ML IV SCH (08:45)
[2020-07-18] MEDS ORDERED: fentaNYL 100 MCG/2 ML SDV ONE (09:13)
[2020-07-18] MEDS ORDERED: Ketorolac 30 MG/ML SDV ONE (09:14)
[2020-07-18] MEDS ORDERED: oxyCODONE 5 MG Tab PO PRN (09:57)
--- NOTE | 2020-07-18 10:02 | PCM.PRNOTE ---
- Free Text/Narrative Note: Date: 07/18/2020 Operation: laparoscopic cholecystectomy Surgeon: Brian Spring MD Findings: severe acute calculous cholecystitis. critical view of safety established. Detailed Report: The patient was taken to the operating room and placed supine. Timeout was performed, and general endotracheal anesthesia was initiated. Abdominal hair was clipped, and the abdomen was prepped and draped in usual sterile fashion. A Veress needle was placed at the left upper quadrant to establish pneumoperitoneum. Once established, a 5 mm bladed trocar was placed just superior to the umbilicus. A 5 mm 30 degree laparoscope was inserted in the abdomen and the Veress insertion site was inspected. There was no inadvertent injury on placement, and the needle was withdrawn. Additional 5 mm ports were placed at the patient's right side under laparoscopic visualization. There were 2 placed in the right upper quadrant. The gallbladder was severely inflamed with adherent omentum. The omentum was bluntly taken off of the gallbladder down to the level of the infundibulum. The fundus of the gallbladder was grasped and retracted cephalad. A 12 mm bladed trocar was placed at the subxiphoid region. Dissection ensued, and the cystic structures were carefully identified and skeletonized. A critical view of safety was obtained. Hemolock clips were placed on the cystic duct, 2 on the stay side and one on the specimen side. Hemoclips were placed on the cystic artery proximal to the node of Calot. The cystic duct and artery were transected with laparoscopic scissors. The gallbladder was taken off of the liver using hook monopolar energy. There was some bleeding that occurred during dissection and removal of the gallbladder. Hemostasis was achieved with targeted monopolar energy at the gallbladder fossa. The dissection site was thoroughly irrigated and suctioned dry. With adequate hemostasis, a tongue of noninflamed omentum was placed in the gallbladder fossa. The gallbladder was placed in an Endo Catch bag and removed through the subxiphoid port site. This larger site was closed at the level of fascia with 0 Vicryl using a laparoscopic suture passer. Smaller ports were removed under laparoscopic visualization. Pneumoperitoneum was released. All incision sites were closed at the level of skin with 4-0 Vicryl and dressed with Dermabond. A total of 30 cc 0.5% Marcaine with epinephrine was used for local anesthetic throughout the case. The patient tolerated the procedure well, was extubated in the operating room and transferred to the recovery unit in good condition.
--- NOTE | 2020-07-18 10:05 | PCM.HP.2 ---
H&P History of Present Illness - General Date of Service: 07/17/20 Admit Problem/Dx: Admission Diagnosis/Problem Admission Diagnosis/Problem Cholecystitis Source of Information: Patient History Limitations: Reports: Uncooperative - History of Present Illness Initial Comments - Free Text/Narative: Patient presenting with 3 days of anorexia and abdominal pain, with findings of significant dehydration and cholecystitis based on labs and imaging. He is 24 and otherwise has no medical problems. Lower Abdomen Pain Score (Numeric/FACES): 2 - Related Data Allergies/Adverse Reactions: Allergies Allergy/AdvReac Type Severity Reaction Status Date / Time Pork/Porcine Containing Allergy Stomach Verified 07/18/20 02:26 Products Upset Home Medications: Home Meds . [No Known Home Meds] 07/17/20 [History] Past Medical History - Past Surgical History GI Surgical History: Reports: Appendectomy Social & Family History - Family History Family Medical History: No Pertinent Family History - Tobacco Use Tobacco Use Status *Q: Current Every Day Tobacco User Years of Tobacco use: 5 Packs/Tins Daily: 0.5 Used Tobacco, but Quit: No Second Hand Smoke Exposure: No - Caffeine Use Caffeine Use: Reports: Soda - Alcohol Use Days Per Week of Alcohol Use: 1 Number of Drinks Per Day: 2 Total Drinks Per Week: 2 - Recreational Drug Use Recreational Drug Use: Yes Drug Use in Last 12 Months: No Recreational Drug Type: Reports: Methamphetamine Other Recreational Drug Type: pt reported last time he used meth was 2 yrs ago Recreational Drug Use Frequency: Not Used In Over 6 Months - Living Situation & Occupation Living situation: Reports: Single, Other (with a friend) Occupation: Unemployed H&P Review of Systems - Review of Systems: Review Of Systems: See Below General: Reports: Malaise, Fatigue HEENT: Reports: No Symptoms Pulmonary: Reports: No Symptoms Cardiovascular: Reports: No Symptoms Gastrointestinal: Reports: Abdominal Pain, Anorexia Genitourinary: Reports: No Symptoms Musculoskeletal: Reports: No Symptoms Skin: Reports: No Symptoms Psychiatric: Reports: No Symptoms, Other Hematologic/Lymphatic: Reports: No Symptoms Immunologic: Reports: No Symptoms Exam - Exam Exam: See Below - Vital Signs Vital Signs: Last Vital Signs Temp 37.3 C 07/18/20 08:02 Pulse 105 H 07/18/20 00:05 Resp 18 07/18/20 08:02 BP 126/80 07/18/20 08:02 Pulse Ox 100 07/18/20 08:02 Weight: 104.78 kg - Exam General: Moderate Distress, Lethargic HEENT: Conjunctiva Clear Neck: Supple, Trachea Midline Lungs: Clear to Auscultation, Normal Respiratory Effort Cardiovascular: Regular Rhythm, Tachycardia GI/Abdominal Exam: Soft, No Mass, Tender Extremities: Normal Inspection Skin: Warm, Dry - Patient Data Lab Results Last 24 hrs: Laboratory Results - last 24 hr 07/17/20 07/17/20 07/17/20 Range/Units 18:48 18:48 18:54 WBC 21.27 H (4.23-9.07) K/mm3 RBC 6.25 H (4.63-6.08) M/mm3 Hgb 17.4 (13.7-17.5) gm/dl Hct 50.5 (40.1-51.0) % MCV 80.8 (79.0-92.2) fl MCH 27.8 (25.7-32.2) pg MCHC 34.5 (32.2-35.5) g/dl RDW Std Deviation 39.3 (35.1-43.9) fL Plt Count 429 H D (163-337) K/mm3 MPV 9.5 (9.4-12.3) fl Neutrophils % (Manual) 67 H (40-60) % Band Neutrophils % 0 (0-10) % Lymphocytes % (Manual) 22 (20-40) % Atypical Lymphs % 0 % Monocytes % (Manual) 9 (2-10) % Eosinophils % (Manual) 2 (0.8-7.0) % Basophils % (Manual) 0 L (0.2-1.2) Platelet Estimate Increased RBC Morph Comment Normal Sodium 137 (136-145) mEq/L Potassium 3.8 (3.5-5.1) mEq/L Chloride 100 (98-107) mEq/L Carbon Dioxide 23 (21-32) mEq/L Anion Gap 17.8 H (5-15) BUN 8 (7-18) mg/dL Creatinine 1.4 H (0.7-1.3) mg/dL Est Cr Clr Drug Dosing 87.40 mL/min Estimated GFR (MDRD) > 60 (>60) mL/min BUN/Creatinine Ratio 5.7 L (14-18) Glucose 148 H (74-106) mg/dL Lactic Acid 1.8 (0.4-2.0) mmol/L Calcium 9.2 (8.5-10.1) mg/dL Total Bilirubin 1.2 H (0.2-1.0) mg/dL AST 15 (15-37) U/L ALT 29 (16-63) U/L Alkaline Phosphatase 77 (46-116) U/L Total Protein 8.1 (6.4-8.2) g/dl Albumin 3.9 (3.4-5.0) g/dl Globulin 4.2 gm/dL Albumin/Globulin Ratio 0.9 L (1-2) Urine Color (Yellow) Urine Appearance (Clear) Urine pH (5.0-8.0) Ur Specific [place] (1.005-1.030) Urine Protein (Negative) Urine Glucose (UA) (Negative) Urine Ketones (Negative) Urine Occult Blood (Negative) Urine Nitrite (Negative) Urine Bilirubin (Negative) Urine Urobilinogen (0.2-1.0) Ur Leukocyte Esterase (Negative) U Hyaline Cast (Auto) (0-5) /lpf Urine RBC (0-5) /hpf Urine WBC (0-5) /hpf Ur Squamous Epith Cells (0-5) /hpf Urine Bacteria (FEW) /hpf Fine Granular Casts (0-5) /lpf Urine Mucus (FEW) /hpf SARS-CoV-2 RNA (SARAH) (NEGATIVE) 07/17/20 07/17/20 Range/Units 19:05 19:30 WBC (4.23-9.07) K/mm3 RBC (4.63-6.08) M/mm3 Hgb (13.7-17.5) gm/dl Hct (40.1-51.0) % MCV (79.0-92.2) fl MCH (25.7-32.2) pg MCHC (32.2-35.5) g/dl RDW Std Deviation (35.1-43.9) fL Plt Count (163-337) K/mm3 MPV (9.4-12.3) fl Neutrophils % (Manual) (40-60) % Band Neutrophils % (0-10) % Lymphocytes % (Manual) (20-40) % Atypical Lymphs % % Monocytes % (Manual) (2-10) % Eosinophils % (Manual) (0.8-7.0) % Basophils % (Manual) (0.2-1.2) Platelet Estimate RBC Morph Comment Sodium (136-145) mEq/L Potassium (3.5-5.1) mEq/L Chloride (98-107) mEq/L Carbon Dioxide (21-32) mEq/L Anion Gap (5-15) BUN (7-18) mg/dL Creatinine (0.7-1.3) mg/dL Est Cr Clr Drug Dosing mL/min Estimated GFR (MDRD) (>60) mL/min BUN/Creatinine Ratio (14-18) Glucose (74-106) mg/dL Lactic Acid (0.4-2.0) mmol/L Calcium (8.5-10.1) mg/dL Total Bilirubin (0.2-1.0) mg/dL AST (15-37) U/L ALT (16-63) U/L Alkaline Phosphatase (46-116) U/L Total Protein (6.4-8.2) g/dl Albumin (3.4-5.0) g/dl Globulin gm/dL Albumin/Globulin Ratio (1-2) Urine Color Anila H (Yellow) Urine Appearance Clear (Clear) Urine pH 6.0 (5.0-8.0) Ur Specific [place] > or = 1.030 (1.005-1.030) Urine Protein 1+ H (Negative) Urine Glucose (UA) Negative (Negative) Urine Ketones Negative (Negative) Urine Occult Blood Negative (Negative) Urine Nitrite Negative (Negative) Urine Bilirubin Negative (Negative) Urine Urobilinogen 1.0 (0.2-1.0) Ur Leukocyte Esterase Negative (Negative) U Hyaline Cast (Auto) 0-5 (0-5) /lpf Urine RBC Not seen (0-5) /hpf Urine WBC 0-5 (0-5) /hpf Ur Squamous Epith Cells 0-5 (0-5) /hpf Urine Bacteria Few (FEW) /hpf Fine Granular Casts 0-5 (0-5) /lpf Urine Mucus Few (FEW) /hpf SARS-CoV-2 RNA (SARAH) Negative (NEGATIVE) Result Diagrams: 07/17/20 18:48 07/17/20 18:48 Sepsis Event Note - Evaluation Sepsis Screening Result: Sepsis Risk - Focused Exam Vital Signs: Vital Signs Temp Pulse Pulse Resp BP Pulse Ox Pulse Ox 07/18/20 08:02 37.3 C 18 126/80 100 07/18/20 04:00 36.7 C 18 127/81 100 07/18/20 00:30 97 07/18/20 00:05 36.6 C 105 H 18 128/79 98 07/17/20 23:59 105 H 24 H 134/80 98 Problem List Initiated/Reviewed/Updated: Yes Orders Last 24hrs: Active Orders 24 hr Category Date Time Status Patient Status [ADT] Routine ADT 07/17/20 21:57 Active Antiembolic Devices [RC] PER UNIT ROUTINE Care 07/17/20 21:58 Active Oxygen Therapy [RC] PRN Care 07/17/20 21:57 Active Peripheral IV Care [RC] . DIRECTED Care 07/18/20 08:33 Active RT Incentive Spirometry [RC] Q1HWA Care 07/17/20 21:57 Active Verify Patient Consent Obtain [RC] ASDIRECTED Care 07/18/20 08:33 Active Vital Signs [RC] Q8H Care 07/17/20 21:57 Active Regular Diet [DIET] Diet 07/18/20 Lunch Ordered Docusate Sodium [Colace] Med 07/18/20 12:00 Ordered 100 mg PO BID Lactated Ringers [Ringers, Lactated] 1,000 ml Med 07/18/20 08:45 Active IV ASDIRECTED Lidocaine 1%/Sod Bicarbonate [Buffered Lidocaine 1% in Med 07/18/20 08:33 Active NS 8.4%] 0.25 ml IDERM ONETIME PRN Sodium Chloride 0.9% [Normal Saline] 1,000 ml Med 07/17/20 20:30 Active IV ASDIRECTED Sodium Chloride 0.9% [Normal Saline] 100 ml Med 07/17/20 20:00 Active IV ASDIRECTED Sodium Chloride 0.9% [Saline Flush] Med 07/18/20 08:33 Active 10 ml FLUSH ASDIRECTED PRN oxyCODONE Med 07/18/20 09:57 Ordered 5 mg PO Q4H PRN polyethylene glycoL 3350 [MiraLAX] Med 07/18/20 12:00 Ordered 17 gm PO BID Medication Administration Instruction [OM.PC] Routine Oth 07/18/20 08:33 Ordered Peripheral IV Insertion Adult [OM.PC] Routine Oth 07/18/20 08:33 Ordered Schedule Procedure [COMM] Routine Oth 07/18/20 07:33 Ordered Sequential Compression Device [OM.PC] Routine Oth 07/17/20 21:57 Ordered Resuscitation Status Routine Resus Stat 07/17/20 21:57 Ordered Medication Orders Docusate Sodium (Colace) 100 mg PO BID [facility] Sodium Chloride (Normal Saline) 100 mls @ 60 drops/min IV ASDIRECTED [facility] Last Admin: 07/17/20 21:07 Dose: 60 drops/min Documented by: ONEIGIN Sodium Chloride (Normal Saline) 1,000 mls @ 150 mls/hr IV ASDIRECTED [facility] Last Admin: 07/17/20 21:04 Dose: 150 mls/hr Documented by: DONALDKAT Lactated Ringer's (Ringers, Lactated) 1,000 mls @ 125 mls/hr IV ASDIRECTED [facility] Stop: 07/18/20 23:00 Lidocaine/Sodium Bicarbonate (Buffered Lidocaine 1% In Ns 8.4%) 0.25 ml IDERM ONETIME PRN PRN Reason: Prior to IV Start Stop: 07/18/20 23:00 Oxycodone HCl (Oxycodone) 5 mg PO Q4H PRN PRN Reason: Pain (moderate 4-6) Polyethylene Glycol (Miralax) 17 gm PO BID [facility] Sodium Chloride (Saline Flush) 10 ml FLUSH ASDIRECTED PRN PRN Reason: Keep Vein Open Stop: 07/18/20 23:00 Assessment/Plan Comment:: Acute cholecystitis. Admit to observation for antibiotics, fluid resuscitation and plan for laparoscopic cholecystectomy in AM. - Mortality Measure Prognosis:: Good
--- NOTE | 2020-07-18 10:07 | PCM.POSTAN ---
POST ANESTHESIA ASSESSMENT - MENTAL STATUS Mental Status: Somnolent - VITAL SIGNS Vital Signs: Last Vital Signs Temp 99.1 F 07/18/20 08:02 Pulse 105 H 07/18/20 00:05 Resp 18 07/18/20 08:02 BP 126/80 07/18/20 08:02 Pulse Ox 100 07/18/20 08:02 1002 89 17 98.1 133/84 96% - RESPIRATORY Respiratory Status: Respiratory Rate WNL, Airway Patent, O2 Saturation Stable, Supplemental Oxygen - CARDIOVASCULAR CV Status: Pulse Rate WNL, Blood Pressure Stable - GASTROINTESTINAL GI Status: No Symptoms - PAIN Pain Score: 0 (sleepy) - POST OP HYDRATION Hydration Status: Adequate & Stable
[2020-07-18] MEDS ORDERED: Docusate Sodium 100 MG Cap PO SCH (12:00)
[2020-07-18] MEDS ORDERED: Polyethylene Glycol 3350 Powder 17 GM Packet PO SCH (12:00)
--- NOTE | 2020-07-18 13:05 | PCM48HPAN ---
Post Anesthesia Note - EVALUATION WITHIN 48HRS OF ANESTHETIC Vital Signs in Normal Range: Yes Patient Participated in Evaluation: Yes Respiratory Function Stable: Yes Airway Patent: Yes Cardiovascular Function Stable: Yes Hydration Status Stable: Yes Pain Control Satisfactory: Yes Nausea and Vomiting Control Satisfactory: Yes Mental Status Recovered: Yes (resting in bed with no complaints) Vital Signs: Last Vital Signs Temp 97.4 F 07/18/20 12:39 Pulse 92 07/18/20 12:39 Resp 18 07/18/20 12:39 BP 143/94 H 07/18/20 12:39 Pulse Ox 94 L 07/18/20 12:39
[2020-07-18] MEDS ORDERED: Nicotine Polacrilex 2 MG Gum CHEW PRN (14:17)
--- NOTE | 2020-07-18 15:43 | PCM.DCSUM1 ---
Discharge Summary - Hospital Course Free Text/Narrative:: Admitted with acute calculous cholecystitis. Underwent routine laparoscopic cholecystectomy and was doing well after surgery, deemed fit for discharge to home that same afternoon. Smoking cessation counseling provided and prescriptions provided. Diagnosis: Stroke: No - Discharge Data Discharge Date: 07/18/20 Discharge Disposition: Home, Self-Care 01 Condition: Stable - Referral to Home Health Primary Care Physician: Ivy Fernandez MD - Patient Summary/Data Operative Procedure(s) Performed: laparoscopic cholecystectomy - Patient Instructions Diet: Usual Diet as Tolerated Activity: No Lifting Over 10 Pounds Showering/Bathing: October Shower Notify Provider of: Fever, Increased Pain, Swelling and Redness, Drainage, Nausea and/or Vomiting - Discharge Plan *PRESCRIPTION DRUG MONITORING PROGRAM REVIEWED*: Not Applicable *COPY OF PRESCRIPTION DRUG MONITORING REPORT IN PATIENT TYREE: Not Applicable Prescriptions/Med Rec: Nicotine [Nicoderm CQ] 7 mg TD DAILY #14 patch oxyCODONE 5 mg PO Q4H #15 tab Home Medications: Home Meds Nicotine [Nicoderm CQ] 7 mg TD DAILY #14 patch 07/18/20 [Rx] oxyCODONE 5 mg PO Q4H #15 tab 07/18/20 [Rx] Oxygen Therapy Mode: Room Air Patient Handouts: Sepsis, Diagnosis, Adult, Steps to Quit Smoking Forms: ED Department Discharge Referrals: Ivy Fernandez MD [Primary Care Provider] - 07/28/20 9:45 am (Hospital follow-up appointment and to set up care with a doctor.) - Discharge Summary/Plan Comment DC Time >30 min.: No - Patient Data Vitals - Most Recent: Last Vital Signs Temp 36.3 C 07/18/20 14:15 Pulse 97 07/18/20 14:15 Resp 16 07/18/20 14:15 BP 142/88 H 07/18/20 14:15 Pulse Ox 95 07/18/20 14:16 Weight - Most Recent: 104.78 kg I&O - Last 24 hours: Intake & Output 07/18/20 07/18/20 07/18/20 06:59 14:59 22:59 Intake Total 2070 100 Output Total 600 1000 Balance 1470 -900 Lab Results - Last 24 hrs: Laboratory Results - last 24 hr 07/17/20 07/17/20 07/17/20 Range/Units 18:48 18:48 18:54 WBC 21.27 H (4.23-9.07) K/mm3 RBC 6.25 H (4.63-6.08) M/mm3 Hgb 17.4 (13.7-17.5) gm/dl Hct 50.5 (40.1-51.0) % MCV 80.8 (79.0-92.2) fl MCH 27.8 (25.7-32.2) pg MCHC 34.5 (32.2-35.5) g/dl RDW Std Deviation 39.3 (35.1-43.9) fL Plt Count 429 H D (163-337) K/mm3 MPV 9.5 (9.4-12.3) fl Neutrophils % (Manual) 67 H (40-60) % Band Neutrophils % 0 (0-10) % Lymphocytes % (Manual) 22 (20-40) % Atypical Lymphs % 0 % Monocytes % (Manual) 9 (2-10) % Eosinophils % (Manual) 2 (0.8-7.0) % Basophils % (Manual) 0 L (0.2-1.2) Platelet Estimate Increased RBC Morph Comment Normal Sodium 137 (136-145) mEq/L Potassium 3.8 (3.5-5.1) mEq/L Chloride 100 (98-107) mEq/L Carbon Dioxide 23 (21-32) mEq/L Anion Gap 17.8 H (5-15) BUN 8 (7-18) mg/dL Creatinine 1.4 H (0.7-1.3) mg/dL Est Cr Clr Drug Dosing 87.40 mL/min Estimated GFR (MDRD) > 60 (>60) mL/min BUN/Creatinine Ratio 5.7 L (14-18) Glucose 148 H (74-106) mg/dL Lactic Acid 1.8 (0.4-2.0) mmol/L Calcium 9.2 (8.5-10.1) mg/dL Total Bilirubin 1.2 H (0.2-1.0) mg/dL AST 15 (15-37) U/L ALT 29 (16-63) U/L Alkaline Phosphatase 77 (46-116) U/L Total Protein 8.1 (6.4-8.2) g/dl Albumin 3.9 (3.4-5.0) g/dl Globulin 4.2 gm/dL Albumin/Globulin Ratio 0.9 L (1-2) Urine Color (Yellow) Urine Appearance (Clear) Urine pH (5.0-8.0) Ur Specific [place] (1.005-1.030) Urine Protein (Negative) Urine Glucose (UA) (Negative) Urine Ketones (Negative) Urine Occult Blood (Negative) Urine Nitrite (Negative) Urine Bilirubin (Negative) Urine Urobilinogen (0.2-1.0) Ur Leukocyte Esterase (Negative) U Hyaline Cast (Auto) (0-5) /lpf Urine RBC (0-5) /hpf Urine WBC (0-5) /hpf Ur Squamous Epith Cells (0-5) /hpf Urine Bacteria (FEW) /hpf Fine Granular Casts (0-5) /lpf Urine Mucus (FEW) /hpf SARS-CoV-2 RNA (SARAH) (NEGATIVE) 07/17/20 07/17/20 Range/Units 19:05 19:30 WBC (4.23-9.07) K/mm3 RBC (4.63-6.08) M/mm3 Hgb (13.7-17.5) gm/dl Hct (40.1-51.0) % MCV (79.0-92.2) fl MCH (25.7-32.2) pg MCHC (32.2-35.5) g/dl RDW Std Deviation (35.1-43.9) fL Plt Count (163-337) K/mm3 MPV (9.4-12.3) fl Neutrophils % (Manual) (40-60) % Band Neutrophils % (0-10) % Lymphocytes % (Manual) (20-40) % Atypical Lymphs % % Monocytes % (Manual) (2-10) % Eosinophils % (Manual) (0.8-7.0) % Basophils % (Manual) (0.2-1.2) Platelet Estimate RBC Morph Comment Sodium (136-145) mEq/L Potassium (3.5-5.1) mEq/L Chloride (98-107) mEq/L Carbon Dioxide (21-32) mEq/L Anion Gap (5-15) BUN (7-18) mg/dL Creatinine (0.7-1.3) mg/dL Est Cr Clr Drug Dosing mL/min Estimated GFR (MDRD) (>60) mL/min BUN/Creatinine Ratio (14-18) Glucose (74-106) mg/dL Lactic Acid (0.4-2.0) mmol/L Calcium (8.5-10.1) mg/dL Total Bilirubin (0.2-1.0) mg/dL AST (15-37) U/L ALT (16-63) U/L Alkaline Phosphatase (46-116) U/L Total Protein (6.4-8.2) g/dl Albumin (3.4-5.0) g/dl Globulin gm/dL Albumin/Globulin Ratio (1-2) Urine Color Anila H (Yellow) Urine Appearance Clear (Clear) Urine pH 6.0 (5.0-8.0) Ur Specific [place] > or = 1.030 (1.005-1.030) Urine Protein 1+ H (Negative) Urine Glucose (UA) Negative (Negative) Urine Ketones Negative (Negative) Urine Occult Blood Negative (Negative) Urine Nitrite Negative (Negative) Urine Bilirubin Negative (Negative) Urine Urobilinogen 1.0 (0.2-1.0) Ur Leukocyte Esterase Negative (Negative) U Hyaline Cast (Auto) 0-5 (0-5) /lpf Urine RBC Not seen (0-5) /hpf Urine WBC 0-5 (0-5) /hpf Ur Squamous Epith Cells 0-5 (0-5) /hpf Urine Bacteria Few (FEW) /hpf Fine Granular Casts 0-5 (0-5) /lpf Urine Mucus Few (FEW) /hpf SARS-CoV-2 RNA (SARAH) Negative (NEGATIVE) Med Orders - Current: Current Medications Docusate Sodium (Colace) 100 mg PO BID [facility] Last Admin: 07/18/20 13:30 Dose: 100 mg Documented by: Lactated Ringer's (Ringers, Lactated) 1,000 mls @ 125 mls/hr IV ASDIRECTED [facility] Stop: 07/18/20 23:00 Last Admin: 07/18/20 11:21 Dose: 125 mls/hr Documented by: Lidocaine/Sodium Bicarbonate (Buffered Lidocaine 1% In Ns 8.4%) 0.25 ml IDERM ONETIME PRN PRN Reason: Prior to IV Start Stop: 07/18/20 23:00 Nicotine Polacrilex (Nicorelief) 4 mg CHEW Q1H PRN PRN Reason: Agitation Oxycodone HCl (Oxycodone) 5 mg PO Q4H PRN PRN Reason: Pain (moderate 4-6) Polyethylene Glycol (Miralax) 17 gm PO BID [facility] Last Admin: 07/18/20 13:30 Dose: 17 gm Documented by: Sodium Chloride (Saline Flush) 10 ml FLUSH ASDIRECTED PRN PRN Reason: Keep Vein Open Stop: 07/18/20 23:00 Discontinued Medications Bupivacaine HCl/Epinephrine Bitart (Marcaine 0.5%/Epinephrine 1:200,000) Confirm Administered Dose 50 ml .ROUTE .STK-MED ONE Stop: 07/18/20 07:55 Last Admin: 07/18/20 08:39 Dose: 20 ml Documented by: Dexamethasone (Dexamethasone) Confirm Administered Dose 20 mg .ROUTE .STK-MED ONE Stop: 07/18/20 08:38 Fentanyl (Sublimaze) Confirm Administered Dose 250 mcg .ROUTE .STK-MED ONE Stop: 07/18/20 08:01 Fentanyl (Sublimaze) Confirm Administered Dose 100 mcg .ROUTE .STK-MED ONE Stop: 07/18/20 09:14 Glycopyrrolate (Robinul) Confirm Administered Dose 0.4 mg .ROUTE .STK-MED ONE Stop: 07/18/20 09:35 Hydromorphone HCl (Dilaudid) 1 mg IVPUSH ONETIME STA Stop: 07/17/20 19:06 Last Admin: 07/17/20 19:13 Dose: 1 mg Documented by: Hydromorphone HCl (Dilaudid) Confirm Administered Dose 0.5 mg .ROUTE .STK-MED ONE Stop: 07/18/20 08:39 Hydromorphone HCl (Dilaudid) Confirm Administered Dose 0.5 mg .ROUTE .STK-MED ONE Stop: 07/18/20 08:52 Sodium Chloride (Normal Saline) 1,000 mls @ 999 mls/hr IV ONETIME ONE Stop: 07/17/20 19:57 Last Admin: 07/17/20 18:58 Dose: 999 mls/hr Documented by: Sodium Chloride (Normal Saline) 100 mls @ 60 drops/min IV ASDIRECTED [facility] Last Admin: 07/17/20 21:07 Dose: 60 drops/min Documented by: Sodium Chloride (Normal Saline) 1,000 mls @ 150 mls/hr IV ASDIRECTED [facility] Last Admin: 07/17/20 21:04 Dose: 150 mls/hr Documented by: Lactated Ringer's (Ringers, Lactated) 1,000 mls @ 150 mls/hr IV ASDIRECTED [facility] Last Admin: 07/18/20 06:58 Dose: 150 mls/hr Documented by: Piperacillin Sod/Tazobactam (Sod 4.5 gm/ Sodium Chloride) 100 mls @ 25 mls/hr IV Q8H [facility] Last Admin: 07/18/20 05:55 Dose: 25 mls/hr Documented by: Piperacillin Sod/Tazobactam (Sod 4.5 gm/ Sodium Chloride) 100 mls @ 200 mls/hr IV ONETIME ONE Stop: 07/17/20 22:44 Last Admin: 07/17/20 22:22 Dose: 200 mls/hr Documented by: Lidocaine HCl (Xylocaine-Mpf 1%) Confirm Administered Dose 4 mls @ as directed .ROUTE .STK-MED ONE Stop: 07/18/20 08:01 Lactated Ringer's (Ringers, Lactated) Confirm Administered Dose 1,000 mls @ as directed .ROUTE .STK-MED ONE Stop: 07/18/20 08:01 Lactated Ringer's (Ringers, Lactated) Confirm Administered Dose 1,000 mls @ as directed .ROUTE .STK-MED ONE Stop: 07/18/20 08:56 Lactated Ringer's (Ringers, Lactated) Confirm Administered Dose 1,000 mls @ as directed .ROUTE .STK-MED ONE Stop: 07/18/20 08:56 Iopamidol (Isovue-300 (61%)) 100 ml IVPUSH ONETIME ONE Stop: 07/17/20 19:57 Last Admin: 07/17/20 21:06 Dose: 100 ml Documented by: Ketorolac Tromethamine (Toradol) Confirm Administered Dose 30 mg .ROUTE .STK-MED ONE Stop: 07/18/20 09:15 Midazolam HCl (Versed 1 Mg/Ml) Confirm Administered Dose 2 mg .ROUTE .STK-MED ONE Stop: 07/18/20 08:01 Morphine Sulfate (Morphine) 1 mg IVPUSH Q3H PRN PRN Reason: Pain (severe 7-10) Last Admin: 07/18/20 05:02 Dose: 1 mg Documented by: Neostigmine Methylsulfate (Neostigmine Methylsulfate) Confirm Administered Dose 5 mg .ROUTE .STK-MED ONE Stop: 07/18/20 09:35 Ondansetron HCl (Zofran) 4 mg IVPUSH ONETIME ONE Stop: 07/17/20 19:06 Last Admin: 07/17/20 19:12 Dose: 4 mg Documented by: Ondansetron HCl (Zofran) Confirm Administered Dose 4 mg .ROUTE .STK-MED ONE Stop: 07/18/20 08:01 Propofol (Diprivan 20 Ml) Confirm Administered Dose 400 mg .ROUTE .STK-MED ONE Stop: 07/18/20 08:02 Rocuronium Eunice (Zemuron) Confirm Administered Dose 50 mg .ROUTE .STK-MED ONE Stop: 07/18/20 08:01 Sodium Chloride (Saline Flush) 10 ml FLUSH BOLUS ADELINE Last Admin: 07/17/20 21:06 Dose: 10 ml Documented by:
== END 2020-07-18 17:38 | disposition home or self-care (01) ==
LOC: JD.ED 18:40 → JD.ICU 21:57 → JD.ED 23:50
PROVIDERS: ADMIT Surgery; ATTEND Surgery
DX: K80.00 Calculus of gallbladder with acute cholecystitis without obstruction (principal); F17.210 Nicotine dependence, cigarettes, uncomplicated; Z79.899 Other long term (current) drug therapy; Z91.018 Allergy to other foods; Z01.812 Encounter for preprocedural laboratory examination; Z20.822 Contact with and (suspected) exposure to COVID-19
CPT/HCPCS: 00790; 36415; 74177; 74177-26; 80053; 81001; 83605; 85007; 85027; 96361; 96365; 96366; 96375; 96376; 99285; 99285-25; A9270-GY; G0378; J1100; J1170; J1885; J2001; J2250; J2270; J2405; J2543; J2704; J2710; J3010; J3490; J7030; J7120; Q9967; U0002

== ENCOUNTER 2023-03-02 21:02 | Emergency (ER) | payer MEDICAID | END 2023-03-02 21:54 | disposition home or self-care (01) | LOC: JD.ED 21:02 | DX: S71.151A Open bite, right thigh, initial encounter (principal); Z91.018 Allergy to other foods; W54.0XXA Bitten by dog, initial encounter | CPT/HCPCS: 99283 ==

== ENCOUNTER 2023-06-25 12:36 | Emergency (ER) | payer MEDICAID ==
[2023-06-25 14:15] LABS: CORONAVIRUS COVID-19 NAA NEGATIVE (NEGATIVE); INFLUENZA A NAA NEGATIVE (NEGATIVE); RESPIRATORY SYNCYTIAL VIR NAA NEGATIVE (NEGATIVE)
== END 2023-06-25 15:30 | disposition home or self-care (01) ==
LOC: JD.ED 12:36
DX: J98.8 Other specified respiratory disorders (principal); F17.210 Nicotine dependence, cigarettes, uncomplicated; Z90.49 Acquired absence of other specified parts of digestive tract; Z20.822 Contact with and (suspected) exposure to COVID-19; Z79.899 Other long term (current) drug therapy; Z88.8 Allergy status to other drugs, medicaments and biological substances
CPT/HCPCS: 0241U; 71046; 71046-26; 99283; 99284